=== PATIENT | male | born 1960 | race African-American/Black ===

== ENCOUNTER 2019-03-19 20:26 | Emergency (ER) | payer MEDICAID ==
[~2019-03-19] VITALS: Ht 175.3 cm; Wt 69.9 kg
[2019-03-19 20:28] VITALS: BP 168/77; PULSE 89; RESP 18; Ht 175.3 cm; Wt 69.9 kg
--- NOTE | 2019-03-19 21:06 | ERD ---
ER Documentation Chief Complaint Chief Complaint COTTON STUCK IN L EAR X'S 1 WEEK HPI 58-year-old male presents with a complaint of a Q-tip swab cotton stuck in his left ear for the last week. Denies any bleeding, discharge, fevers, pain. ROS All systems reviewed and are negative except as per history of present illness. Allergies Allergies: Coded Allergies: No Known Allergy (Unverified , 03/19/19) PMhx/Soc Medical and Surgical Hx: pt denies Medical Hx, pt denies Surgical Hx Hx Alcohol Use: No Hx Substance Use: No Hx Tobacco Use: No Smoking Status: Never smoker FmHx Family History: No diabetes, No coronary disease, No other Physical Exam Vitals Vital Signs Date Temp Pulse Resp B/P (MAP) Pulse Ox O2 O2 Flow FiO2 Time Delivery Rate 03/19/19 98.0 89 18 168/77 99 20:28 (107) Physical Exam Const: No acute distress Head: Atraumatic Eyes: Normal Conjunctiva ENT: Normal External Ears, Nose and Mouth. Visible [place] foreign body visible in the left ear canal. No bleeding or discharge. No pain with passive range of motion. Neck: Full range of motion. No meningismus. Resp: Clear to auscultation bilaterally Cardio: Regular rate and rhythm, no murmurs Abd: Soft, non tender, non distended. Normal bowel sounds Skin: No petechiae or rashes Back: No midline or flank tenderness Ext: No cyanosis, or edema Neur: Awake and alert Psych: Normal Mood and Affect Procedures/MDM Using alligator forceps a piece of cotton was successfully removed from the left ear canal. TM was normal after removal. Patient will be discharged home with further observation and return precautions for bleeding, fevers, new worsening symptoms. There is no signs of mastoiditis, perforation, additional complications. Departure Diagnosis: Primary Impression: Acute foreign body of left ear canal Condition: Stable Patient Instructions: Foreign Body, Ear Canal (Removed) MILLIE TIM MD Mar 19, 2019 21:06
== END 2019-03-19 21:10 | disposition home or self-care (01) ==
LOC: FTE 20:26
DX: T16.2XXA Foreign body in left ear, initial encounter (principal); X58.XXXA Exposure to other specified factors, initial encounter; Y92.9 Unspecified place or not applicable
CPT/HCPCS: 69200; Z7502